=== PATIENT | female | born 1980 | race Caucasian/White ===

== ENCOUNTER 2020-01-07 15:03 | Emergency (ER) | payer OTHER ==
[~2020-01-07] VITALS: Ht 167.6 cm; Wt 85.7 kg
[2020-01-07 15:14] VITALS: Ht 167.6 cm; Wt 85.7 kg
[2020-01-07 16:48] VITALS: BP 119/96
== END 2020-01-07 17:25 | disposition home or self-care (01) ==
LOC: ED 15:03
DX: S40.012A Contusion of left shoulder, initial encounter (principal); W19.XXXA Unspecified fall, initial encounter; Y93.89 Activity, other specified; Y92.89 Other specified places as the place of occurrence of the external cause; Y99.8 Other external cause status
CPT/HCPCS: Q0092